=== PATIENT | female | born 1985 | race Two or more races ===

== ENCOUNTER 2024-09-12 21:56 | Emergency (ER) | payer MEDICAID, SELFPAY ==
[2024-09-12 21:57] VITALS: BMI 37.8
[2024-09-12 22:39] VITALS: BP 130/83; PULSE 86; RESP 18; TEMP 36.9; O2SAT 100
--- NOTE | 2024-09-12 22:49 | EDNOTE_ITS ---
ED Abdominal Pain RME/HPI General Stated complaint: ABD PAIN Time seen by provider: 09/13/24 03:16 Arrival date/time: 09/12/24 21:56 39-year-old female presents to urgent care with complaint of pelvic pain with vaginal bleeding that began approximately 10 days ago. Pelvic pain began approximately 3 days ago. Source: patient Limitations: no limitations RME / HPI MD complaint: abdominal pain Quality: aching Radiation: none Related Data Previous Rx's ?Medication ?Instructions ?Recorded cyclobenzaprine 10 mg tablet 10 mg PO BID #10 tabs hydrocodone 5 mg-acetaminophen 325 1 tab PO Q6H PRN pa in #10 tabs 12/01/21 mg tablet ibuprofen 800 mg tablet 800 mg PO Q6H PRN pain #10 t abs 12/01/21 Allergies Allergy/AdvReac Type Severity Reaction Status Date / Time amoxicillin Allergy Severe Rash Verified 09/12/24 22:03 Penicillins Allergy Severe Rash Verified 09/12/24 22:03 Review of Systems Constitutional Constitutional: Reports system reviewed and no additional complaints, except as documented and Reports as per HPI Eyes Eyes: Reports system reviewed and no additional complaints, except as documented, Denies dry eyes, Denies exophthalmos and Reports floaters Cardiovascular Cardiovascular: Reports system reviewed and no additional complaints, except as documented, Reports as per HPI, Denies chest pain with activity and Denies claudication Respiratory Respiratory: Reports system reviewed and no additional complaints, except as documented and Reports as per HPI Gastrointestinal Gastrointestinal: Reports system reviewed and no additional complaints, except as documented and Reports as per HPI Genitourinary Genitourinary: Reports system reviewed and no additional complaints, except as documented and Reports as per HPI Comments: Pelvic pain Musculoskeletal Musculoskeletal: Reports system reviewed and no additional complaints, except as documented and Reports as per HPI Integumentary/Breasts Skin/Breast: Reports system reviewed and no additional complaints, except as documented and Reports as per HPI Neurologic Neurologic: Reports system reviewed and no additional complaints, except as documented and Reports as per HPI Past Medical History Past Medical History Comments PM COMMENT: Ovarian cyst left ED Exam General Limitations: Present no limitations General appearance: Present alert and in no apparent distress Head Head exam: Present atraumatic Eye Eye exam: Present normal appearance, PERRL and EOMI ENT ENT exam: Present normal exam, normal oropharynx and mucous membranes moist Neck Neck exam: Present normal inspection, full ROM and trachea midline Chest Chest inspection: Present normal inspection and symmetric chest wall rise Respiratory Respiratory exam: Present normal lung sounds bilaterally Cardiovascular Cardiovascular exam: Present regular rate, normal rhythm and normal heart sounds Abdominal Exam Abdominal exam: Present soft and normal bowel sounds Extremities Exam Extremities exam: Present normal inspection and full ROM Back Exam Back exam: Present normal inspection and full ROM Neurological Exam Neurological exam: Present alert, oriented X3 and CN II-XII intact Psychiatric Psychiatric exam: Present normal affect and normal mood Skin Skin exam: Present warm, dry, intact and normal color Course Course Course Narrative: Patient had an ultrasound which demonstrated a 5.3 cm simple left ovarian cyst. 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 Patient is a follow-up as discuused. Quality Measures none Orders Category Date Time Status US pelvic complete Stat Exams 09/13/24 00:00 Taken CBC Stat Lab 09/12/24 23:05 Completed Comprehensive Metabolic Panel Stat Lab 09/12/24 23:05 Completed HCG,Qualitative Serum Stat Lab 09/12/24 23:05 Completed Lipase Stat Lab 09/12/24 23:05 Completed Urinalysis Stat Lab 09/12/24 23:15 Completed Vital Signs Vital signs: Vital Signs Temperature 98.5 F 09/12/24 22:39 Pulse Rate 86 09/12/24 22:39 Respiratory Rate 18 09/12/24 22:39 Blood Pressure 130/83 09/12/24 22:39 Pulse Oximetry (%) 100 09/12/24 22:39 Oxygen Delivery Method Room Air 09/12/24 22:39 Pulse ox room air is 100% Abdominal Pain MDM MDM Narrative MDM Narrative:: Ovarian cyst, patient is to follow-up STRATEGIC DEBRIEFING OFFICER for a review of the lab work done today and a potential referral or operative or medical procedure is warranted. Patient is discharged in no apparent distress. Patient data External records reviewed:: Other (specify) Clinical information provided by:: none Social determinants that could affect healthcare access:: none Patient has the following chronic illnesses:: N/A How is presenting disease/condition affected by chronic disease/condition?: no chronic disease Evaluation data The following diagnostics were reviewed and interpreted by me:: lab results, radiology exam(s) and other (specify) Lab and/or radiology exams considered but not ordered:: N/A Interpretation Summary: N/A which is Medications / Prescriptions Medications or Prescriptions considered but not ordered:: N/A Medication administrations:: N/A Consultations Consultation(s) initiated? (list below): No Diagnosis Differential diagnosis abdominal pain: abdominal pain, acute appendicitis and endometriosis Most likely diagnosis given after review of the tests above:: Dysfunctional uterine bleed ovarian cyst Admission Indicated Admission indicated?: not indicated Admission Request Was there a request for admission?: No Disposition Plan Disposition Plan: Discharge Discharge Attestation Discharge Attestation: The patient and all family members were given an opportunity to ask questions and understood the discharge instructions. Discharge instructions specifically effects, indications for sooner follow up or return to the emergency department, and the expected course of current diagnosis. Patient condition: Stable Discharge Plan Plan Patient Disposition: HOME (Self Care) Discharge Disposition comment: Patient discharged in no apparent distress Patient condition on transfer: Stable Prescriptions/Referrals Prescriptions/Med Rec: No Action ibuprofen 800 mg tablet 800 mg PO Q6H PRN (Reason: pain) Qty: 10 0RF hydrocodone-acetaminophen 5-325 mg tablet 1 tab PO Q6H MDD 4 PRN (Reason: pain) Qty: 10 0RF cyclobenzaprine 10 mg tablet 10 mg PO BID Qty: 10 0RF Referrals: Jessica Sánchez PA-C [Primary Care Provider] - In 1 week Problem List Clinical Impression: Ovarian cyst, Bleeding, uterine, dysfunctional Patient/Caregiver Discharge Instructions Education Materials: ED Dysfunctional Uterine Bleeding, ED Ovarian Cyst Print Language: [place] MARGIE/BECKA Supervising Physician CASTRO Supervising Physician: [email or web address]
[2024-09-12 23:33] LABS: Basophils % (Auto) 0 % (0-2.5); Eosinophils # (Auto) 0.1 Thou/mm3 (0.0-0.5); Eosinophils % (Auto) 1 % (0-10); Hematocrit 27.7 % (36.0-46.0); Immature Granulocytes % (Auto) 1 % (0-0); Immature Granulocytes Auto 0.04 Thou/mm3 (0.00-0.00); Lymphocytes # (Auto) 2.4 Thou/mm3 (1.0-4.8); Lymphocytes % (Auto) 36 % (10-50); Mean Corpuscular HGB Conc 32.5 g/dl (31.0-37.0); Mean Corpuscular Hemoglobin 29.4 pg (25.0-35.0); Mean Corpuscular Volume 91 fL (80-100); Monocytes # (Auto) 0.3 Thou/mm3 (0.0-0.8); Monocytes % (Auto) 5 % (0-12); Neutrophils # (Auto) 3.9 Thou/mm3 (1.8-7.7); Neutrophils % (Auto) 57 % (37-80); Nucleated Red Blood Cell % 0 /100 WBC (0); Platelet Count 160 Thou/mm3 (140-440); RDW Standard Deviation 45.3 fL (36.4-46.3); Red Blood Count 3.06 Miln/mm3 (4.00-5.20); White Blood Count 6.7 Thou/mm3 (3.6-11.0)
[2024-09-12 23:46] LABS: HCG,Qualitative Serum Negative
[2024-09-12 23:50] LABS: Alanine Aminotransferase 10 U/L (10-49); Albumin, Serum 4.2 gm/dL (3.5-5.0); Albumin/Globulin Ratio 1.8 (1.2-2.2); Alkaline Phosphatase 65 U/L (46-116); Anion Gap 6 (7-16); Aspartate Amino Transferase 18 U/L (0-34); BUN/Creatinine Ratio 16 Ratio (12-20); Bilirubin,Total 0.5 mg/dL (0.3-1.2); Blood Urea Nitrogen 11 mg/dL (9-23); Calcium 8.4 mg/dL (8.3-10.6); Calcium (Corrected) 8.4 mg/dL (8.5-10.1); Chloride 111 mMol/L (98-107); Creatinine (Component) 0.7 mg/dL (0.6-1.3); Estimated Creatinine Clearance 123.9 mL/min (>60); Globulin 2.3 gm/dL (2.3-3.5); Glucose 106 mg/dL (74-106); Lipase 47 U/L (12-53); Osmolality,Calculated 282 (275-295); Potassium 3.7 mMol/L (3.4-5.1); Sodium 142 mMol/L (136-145); Total Protein 6.5 gm/dL (5.7-8.2); eGFR > 60 See Note
--- NOTE | 2024-09-13 | XR_ITS ---
Examination: Pelvic ultrasound, transabdominal, complete Technique: Transabdominal ultrasound of the pelvis performed using grayscale imaging Date and time of exam: September 13, 2024 1211 hours INDICATIONS: Irregular heavy menses beginning September 05, 2024 FINDINGS: Uterus 9.1 cm intrauterine device satisfactory position Endometrial stripe 0.9 cm Right ovary obscured by bowel gas Left ovary 7.1 cm arterial flow 5.3 cm simple cyst IMPRESSION: Left ovarian simple cyst 5.3 x 3.2 x 4.4 cm
[2024-09-13 00:03] LABS: Collection Type, Urine Clean Catch
[2024-09-13 00:22] LABS: Bilirubin,Urine Negative (Negative); Blood,Urine 3+ (Negative); Clarity,Urine Clear (Clear/Hazy); Color,Urine Lt-Yellow (Lt Yel-Yel); Glucose, Urine Negative (Negative); Ketones,Urine Negative (Negative); Leukocyte Esterase,Urine Negative (Negative); Nitrite,Urine Negative (Negative); Protein,Urine Negative (Neg - Trace); RBC,Urine 125 /hpf (0-3); Specific Gravity,Urine 1.012 (1.001-1.035); Squamous Epithelial Cell,Urine 1 /hpf (0-5); Urobilinogen,Urine Negative mg/dL (0.0-1.0); WBC,Urine 1 /hpf (0-5)
--- NOTE | 2024-09-13 02:19 | PRELIM_ITS ---
Pelvic ultrasound (transabdominal). September 13, 2024 0011 hours Clinical history: Vaginal bleeding Technique: Real-time, grayscale, transabdominal pelvic ultrasound was performed using Duplex scanning including arterial inflow, venous outflow, color and spectral Doppler. Comparison: None. Findings: The uterus measures 9.1 x 4.8 x 7.8 cm. The endometrium is 9 mm thick. Left ovary measures 7.1 x 4.7 x 5.2 cm. There is a 5.3 x 3.2 x 4.4 cm simple left ovarian cyst. The right ovary is not visualized. The left ovary is normal Doppler flow. There is an intrauterine contraceptive device in normal position in the uterine fundus. No free fluid. Impression: A 5.3 cm simple left ovarian cyst. Recommend ultrasound follow-up to confirm resolution. Nonvisualized right ovary. Intrauterine contraceptive device in normal position in the uterine fundus. Report Electronically Signed By: Rob Bartlett 09/13/2024 2:19:13 AM [EST]
== END 2024-09-13 03:35 | disposition home or self-care (01) ==
PROVIDERS: Physician Assistant; Emergency Provider Emergency Medicine; PCP Physician Assistant Medical
DX: N83.292 Other ovarian cyst, left side (principal); N93.8 Other specified abnormal uterine and vaginal bleeding
CPT/HCPCS: 36415; 76856; 80053; 81001; 83690; 84703; 85025; 99284

== ENCOUNTER 2025-01-23 07:53 | Outpatient (RCR) | payer MEDICAID, SELFPAY | END 2025-02-04 23:59 | disposition home or self-care (01) | LOC: SCTC 07:53 | PROVIDERS: PCP Physician Assistant Medical; Referring Provider Physician Assistant Medical; Visit Provider Nurse Practitioner Family | DX: D50.9 Iron deficiency anemia, unspecified (principal); N92.0 Excessive and frequent menstruation with regular cycle | CPT/HCPCS: 99213; G0463 ==

== ENCOUNTER 2025-02-26 09:34 | Outpatient (RCR) | payer MEDICAID, SELFPAY | END 2025-03-07 23:59 | disposition home or self-care (01) | LOC: SCTC 09:34 | PROVIDERS: PCP Physician Assistant Medical; Referring Provider Physician Assistant Medical; Visit Provider Nurse Practitioner Family | DX: D50.9 Iron deficiency anemia, unspecified (principal); N92.0 Excessive and frequent menstruation with regular cycle | CPT/HCPCS: 99212; G0463 ==